=== PATIENT | female | born 1970 | race Two or more races ===

== ENCOUNTER → 2025-06-16 | Outpatient (CLI) | payer BC, MEDICAID, SELFPAY ==
--- NOTE | 2025-06-16 14:51 | XR_ITS ---
Examination: Retroperitoneal ultrasound, complete Technique: Multiple high resolution grayscale images of the retroperitoneum obtained, including kidneys and bladder. Exam date and time: June 16, 2025, 1500 hours INDICATIONS: Pelvic cramping blood in the urine frequent urination today FINDINGS: Right kidney 9.7 cm renal cortex 1.7 cm Left kidney 9.7 cm renal cortex 2.2 cm Mild renal scar formation, no renal calculi No bladder mass or bladder calculi Bladder prevoid volume 109 cc IMPRESSION: Small kidneys, mild bilateral renal scar formation, no hydronephrosis or renal calculi
== END | disposition home or self-care (01) ==
PROVIDERS: PCP Nurse Practitioner Family; Referring Provider Nurse Practitioner Family; Visit Provider Nurse Practitioner Family
DX: N28.89 Other specified disorders of kidney and ureter (principal)
CPT/HCPCS: 76770